=== PATIENT | male | born 1950 | race Caucasian/White ===

== ENCOUNTER 2019-01-31 15:00 | Emergency (ER) | payer MEDICARE, BC ==
--- NOTE | 2019-01-31 15:34 | EDM.PDOC ---
ED HPI GENERAL MEDICAL PROBLEM - General Chief Complaint: Lower Extremity Injury/Pain Stated Complaint: LT ANKLE INJURY Time Seen by Provider: 01/31/19 15:19 Source of Information: Reports: Patient, RN Notes Reviewed History Limitations: Reports: No Limitations - History of Present Illness INITIAL COMMENTS - FREE TEXT/NARRATIVE: Patient is a 68-year-old male who presents to the ED for evaluation of a left ankle injury. The patient notes that around 7 AM this morning, he was outside, and was using the snowblower when he slipped on the ice and ended up injuring his left ankle. He did have some pain and swelling to his left ankle right away , he was able to walk on the extremity after the injury. He has been using ice on and off in 30-minute intervals, however this is not providing too much pain relief. Patient also did not take any ibuprofen or Tylenol for pain management at home. The patient denies pain anywhere else, into the hip or into the knee, he denies any loss of consciousness or hitting his head at this time. He notes that with movement and weightbearing, the pain is a 9 out of 10, when he sits still, it is at a 3 out of 10. Patient denies any numbness or tingling distal to the injury. Left Ankle Pain Score (Numeric/FACES): 5 - Related Data Allergies Allergy/AdvReac Type Severity Reaction Status Date / Time No Known Allergies Allergy Verified 01/31/19 15:18 Home Meds: Home Meds Phenytoin Sodium Extended [Dilantin] 300 mg PO BEDTIME 01/31/19 [History] atorvaSTATin [Lipitor] 10 mg PO DAILY 01/31/19 [History] Past Medical History HEENT History: Reports: Cataract Cardiovascular History: Reports: High Cholesterol Neurological History: Reports: Seizure - Past Surgical History Musculoskeletal Surgical History: Reports: Hip Replacement Social & Family History - Family History Family Medical History: Noncontributory - Tobacco Use Smoking Status *Q: Unknown Ever Smoked Review of Systems - Review of Systems Review Of Systems: Comprehensive ROS is negative, except as noted in HPI. Musculoskeletal: Reports: Joint Pain (L ankle), Joint Swelling (L ankle). 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 Denies: Numbness, Tingling ED EXAM, GENERAL - Physical Exam Exam: See Below Exam Limited By: No Limitations General Appearance: Alert, WD/WN, No Apparent Distress Eye Exam: Bilateral Eye: EOMI, Normal Inspection, PERRL Head: Atraumatic, Normocephalic Neck: Normal Inspection, Supple, Non-Tender, Full Range of Motion Respiratory/Chest: No Respiratory Distress, Lungs Clear, Normal Breath Sounds, No Accessory Muscle Use, Chest Non-Tender Cardiovascular: Normal Peripheral Pulses, Regular Rate, Rhythm, No Edema, No Murmur Peripheral Pulses: 3+: Dorsalis Pedis (L), Dorsalis Pedis (R) Extremities: Joint Swelling (L ankle), Limited Range of Motion (of L ankle d/t pain) Neurological: Alert, Oriented, Normal Cognition, No Motor/Sensory Deficits Psychiatric: Normal Affect, Normal Mood Skin Exam: Warm, Dry, Intact, Normal Color, No Rash. No: Ecchymosis Course - Vital Signs Last Recorded V/S: Last Vital Signs Temp 98.9 F 01/31/19 15:16 Pulse 72 01/31/19 15:16 Resp 18 01/31/19 15:16 BP 125/87 01/31/19 15:16 Pulse Ox 97 01/31/19 15:16 - Orders/Labs/Meds Orders: Active Orders 24 hr Category Date Time Status Ankle Min 3V Lt [CR] Stat Exams 01/31/19 15:20 Ordered - Re-Assessments/Exams Free Text/Narrative Re-Assessment/Exam: 01/31/19 15:33 Patient presents to the ED for the evaluation of a left ankle injury. I did order ankle x-rays for evaluation, the patient denied any sort of pain medication at today's ED visit. He states he will just take some ibuprofen when he gets home. 01/31/19 15:46 X-ray is done, and demonstrates a distal fibular fracture, that is nondisplaced. These reviewed by myself and Dr. Orr. Orthopedics at [facility] were consulted and they state that he can be non-weightbearing and send him home in a walking boot. The patient already presented to the ER with crutches, will have him be nonweightbearing until he can be evaluated by orthopedics. Departure - Departure Time of Disposition: 15:48 Disposition: Home, Self-Care 01 Condition: Fair Clinical Impression: Fracture of fibula Closed fracture of left distal fibula Qualifiers: Encounter type: initial encounter Fracture morphology: unspecified fracture morphology Qualified Code(s): S82.832A - Other fracture of upper and lower end of left fibula, initial encounter for closed fracture - Discharge Information *PRESCRIPTION DRUG MONITORING PROGRAM REVIEWED*: No *COPY OF PRESCRIPTION DRUG MONITORING REPORT IN PATIENT KEL: No Instructions: Tibial and Fibular Fractures Referrals: Ricardo Preciado MD [Primary Care Provider] - Forms: ED Department Discharge Additional Instructions: You have been evaluated in the ED for your Left ankle injury. Your x-ray demonstrated a nondisplaced distal fibular fracture. Please use ice as tolerated to the affected area. You were given a walking boot , for immobilization of the joint, even though this is a walking boot we recommend that you be nonweightbearing on the left lower extremity. You will need to use crutches for walking around, you will need to stay non- weightbearing until orthopedics states otherwise. You may take Tylenol 500 mg or ibuprofen 600mg q6 hrs for pain relief. Please do so until you have a tolerable level of pain with activity. Do not exceed 4000mg tylenol, Do not exceed 3200mg ibuprofen in a 24 hour time period. You were given a prescription for a strong pain medication, hydrocodone/ acetaminophen 5/325, please take 1 tab every 6 hours as needed for pain not relieved by Tylenol or ibuprofen alone. Please note this does contain Tylenol in it, so do not take more than 4000 mg in a 24-hour time span. These medications can be addictive, so please take as few as possible to achieve adequate pain control. These meds can also be quite constipating, recommend that you increase your oral fluid intake and take a stool softener like MiraLAX while taking these medications. Please call Ortho for follow-up and further evaluation Dr. Zimmerman is our orthopedic surgeon, his office number is [phone]. Please call and set up an appointment as soon as possible for further management. Please return to ED if your symptoms should change or worsen. - My Orders Last 24 Hours: My Active Orders 01/31/19 15:20 Ankle Min 3V Lt [CR] Stat - Assessment/Plan Last 24 Hours: My Active Orders 01/31/19 15:20 Ankle Min 3V Lt [CR] Stat
--- NOTE | 2019-02-03 09:39 | CR ---
Left ankle: Four views of left ankle were obtained. Comparison: No previous ankle study. Plantar spur is noted. Lateral malleolus fracture is seen. Fracture appears anatomic in alignment. Ankle mortise is symmetric. Diffuse soft tissue swelling is present. No additional fracture or other bony abnormality is appreciated. Impression: 1. Nondisplaced lateral malleolus fracture with soft tissue swelling. 2. Plantar spur. Diagnostic code #3 This report was dictated in Mountain Standard Time
== END 2019-01-31 16:14 | disposition home or self-care (01) ==
LOC: JD.ED 15:00
DX: S82.832A Other fracture of upper and lower end of left fibula, initial encounter for closed fracture (principal); E78.00 Pure hypercholesterolemia, unspecified; Z79.899 Other long term (current) drug therapy; W00.0XXA Fall on same level due to ice and snow, initial encounter
CPT/HCPCS: 73610-26-LT; 73610-LT; 99283; 99283-25

== ENCOUNTER 2021-01-29 06:21 | Day surgery (SDC) | payer MEDICARE, BC ==
[~2021-01-29 06:21] MED LIST: Acetaminophen 325 MG Tab PO SCH; Lactated Ringers 1,000 ML IV SCH; Lidocaine 1%/Sod Bicarbonate in NS 8.4% 1 ML Syringe IDERM PRN; Pregabalin 25 MG Cap PO SCH; Sodium Chloride 0.9% 10 ML Syringe FLUSH PRN; oxyCODONE ER 10 MG TAB.ER PO SCH
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
[2021-01-29] MEDS ORDERED: Propofol 200 MG/20 ML SDV ONE (07:18)
[2021-01-29] MEDS ORDERED: fentaNYL 100 MCG/2 ML SDV ONE (07:18)
[2021-01-29] MEDS ORDERED: ceFAZolin 1 GM Vial ONE (07:19)
[2021-01-29] MEDS ORDERED: Midazolam 1 MG/ML 2 ML SDV ONE (07:19)
[2021-01-29] MEDS ORDERED: EPINEPHrine 1 MG/ML SDV ONE (07:23)
[2021-01-29] MEDS ORDERED: Ropivacaine 0.5% 5 MG/ML 30 ML SDV ONE (07:23)
[2021-01-29] MEDS ORDERED: Lactated Ringers 1,000 ML ONE (08:59)
[2021-01-29] MEDS ORDERED: Ondansetron 4 MG/2 ML SDV IVPUSH PRN (10:46)
[2021-01-29] MEDS ORDERED: fentaNYL 100 MCG/2 ML SDV IVPUSH PRN (10:46)
[2021-01-29] MEDS ORDERED: HYDROmorphone 0.5 MG/0.5 ML Syringe IVPUSH PRN (10:46)
--- NOTE | 2021-01-29 10:47 | PCM.POSTAN ---
POST ANESTHESIA ASSESSMENT - MENTAL STATUS Mental Status: Alert, Oriented - VITAL SIGNS Vital Signs: Last Vital Signs Temp 98 F 01/29/21 10:34 Pulse 64 01/29/21 10:34 Resp 16 01/29/21 10:34 BP 101/64 01/29/21 10:34 Pulse Ox 100 01/29/21 10:34 - RESPIRATORY Respiratory Status: Respiratory Rate WNL, Airway Patent, O2 Saturation Stable - CARDIOVASCULAR CV Status: Pulse Rate WNL, Blood Pressure Stable - GASTROINTESTINAL GI Status: No Symptoms - PAIN Pain Score: 1 - POST OP HYDRATION Hydration Status: Adequate & Stable
--- NOTE | 2021-01-29 10:48 | PCM.PRNOTE ---
- Free Text/Narrative Note: Left selective femoral nerve block at the adductor canal for post-procedure pain control under US guidance requested by Dr. Zimmerman. Time Out: 1030 Start: 1038 End: 1041 Chart reviewed. Consent signed. Questions answered. Appropriate monitors applied. Time out performed. Left mid-shaft femur identified with ultrasound, scanning medially of femur, the femoral artery in the adductor canal visualized, and the femoral nerve located laterally to the artery. The skin was prepped lateral to the ultrasound probe with chlorahexadine times three. The 21ga 4 insulated block needle was inserted under direct ultrasound guidance into the adductor canal. 20mL of 0.5% ropivacaine with 1:200,000 epinephrine was injected circumferentially around the nerve with intermittent negative aspiration noted. Patient tolerated the procedure well. Sterile technique noted along with sterile gloves, mask, and sterile probe cover. See picture on progress note and vital signs on nurses notes. Block completed in PACU. Zaria Rebollar, DIESEL MOTOR MECHANIC
[2021-01-29] MEDS: Morphine 8 MG, EPINEPHrine 0.3 MG, Cefuroxime 750 MG, Ketorolac 30 MG, Sodium Chloride ... PRN ×10 (10:50→14:14)
[2021-01-29] MEDS: Vancomycin 1 GM SDV ONE ×2 (10:50→14:17)
--- NOTE | 2021-01-29 11:26 | CR ---
Left knee: AP and crosstable lateral views of the left knee were obtained. Comparison: Prior left knee CT study of 11/10/20. Left knee prosthesis is noted. Patellar prosthesis is seen. Components are aligned. Underlying bony structures show nothing else acute. Soft tissue air is seen. Impression: 1. Satisfactory postoperative radiographic appearance of recently placed left knee prostheses. Diagnostic code #2
[2021-01-29] MEDS ORDERED: Cyclobenzaprine 10 MG Tab PO ONE (11:45)
[2021-01-29] MEDS ORDERED: oxyCODONE 5 MG Tab PO ONE (11:46)
--- NOTE | 2021-02-11 16:34 | PCM.OPNOTE ---
- General Post-Op/Procedure Note Date of Surgery/Procedure: 01/29/21 Operative Procedure(s): left total knee arthroplasty with [employer] robot[employer] Pre Op Diagnosis: left knee osteoarthrosis Post-Op Diagnosis: Same Anesthesia Technique: Local, MAC, Spinal Primary Surgeon: Rogelio Zimmerman Anesthesia Provider: Zaria Rebollar Corrugator Machine Operator: Xuan Fitzpatrick Corrugator Machine Operator: Ale Garcia EBL in mLs: 200 Complications: None Condition: Good Free Text/Narrative:: 07/05 9mm 35x10
--- NOTE | 2021-02-12 16:56 | OR ---
DATE OF OPERATION: 01/29/2021 SURGEON: Rogelio Zimmerman MD OPERATING PROCEDURE: Left total knee arthroplasty with [employer] robot[employer]. PREOPERATIVE DIAGNOSIS: Left knee osteoarthrosis. POSTOPERATIVE DIAGNOSIS: Left knee osteoarthrosis. ANESTHESIA: Local MAC with spinal. ANESTHESIA PROVIDER: Zaria Rebollar. ASSISTANTS: Xuan Fitzpatrick PA-C, and Ale Garcia LPN ESTIMATED BLOOD LOSS: 200 mL. COMPLICATIONS: None. CONDITION: Stable. IMPLANTS: 1. [place] size 5 pres-fit CR femur. 2. Tiarra size 5 press-fit tibial base plate. 3. Tiarra size 5, 9 mm CS polyethylene insert. 4. Tiarra size 35 x 10 mm press-fit patella. DESCRIPTION OF PROCEDURE: The patient was identified in the preop holding area. Proper site was marked and identified by the surgeon. The patient was taken back to the operating theater, where after adequate anesthesia, the patient's left lower extremity had a nonsterile tourniquet applied and then it was sterilely prepped and draped in the usual sterile fashion. OR time-out was performed. The patient received 2 g IV Ancef. Leg rios was then applied to the left lower extremity. At this time, the left lower extremity was exsanguinated. Tourniquet was insufflated to 250 mmHg. Standard anterior incision was made. Medial parapatellar arthrotomy was created. Deep fibers of the MCL were raised and anterior fat pad was resected. Attention was turned to the patella. Patella measured a 24, it was resected to a 14 for a 35 x 10 mm patella. Drill holes were then drilled. Attention was then turned to the femur. Two 4.0 Schanz pins were placed intra- incisionally on the femur for the Tiarra Renny robotic array and then 2 more were placed on the tibia 3 fingerbreadths below the tibial tubercle. The [place] [employer] robotic arrays were placed on both the femur and the tibia at this time as well as checkpoints on the femur and tibia. Hip center rotation was then obtained. The medial and lateral malleoli were marked as well as the checkpoints were marked for the Tiarra Renny robotic plan. The patient's knee was brought to full extension, varus and valgus stresses were applied, and then into 90 degrees of flexion. Tairra Renny robotic plan for this patient was then undertaken to match the flexion and extension gaps. A straight saw blade was then brought in. Tibial cut was completed as well as an anterior femoral cut, anterior chamfer cut, and posterior femoral cut. Saw blade was then switched out and the distal femoral cut as well as the posterior chamfer cut was completed. All bony fragments were removed. At this time, medial and lateral menisci were resected as well as any posterior osteophytes. Attention was turned to the tibia. The size 5 trial baseplate was placed on the tibia and a size 5 trial femur was placed on the femur. A 5, 9 mm trial poly was placed. The patient's knee was brought to full extension and flexion. Varus and valgus stresses were applied, was found to be stable with no instability. No signs of liftoff or loosening on the tibial baseplate. At this time, femoral drill holes were drilled, and the tibia was stamped and drilled in proper rotation. All trial implants were then removed. The size 5 tibial baseplate was impacted into place, size 5 femoral component was impacted into place, and then a 5, 9 mm CS polyethylene insert was impacted into place. A 35 x 10 mm press-fit patella was then press-fit into place. The tourniquet was deflated. Bleeders were cauterized. 1 L pulse lavage irrigation with Ancef was irrigated through the knee along with 400 mL Irrisept irrigation. Periarticular injection was completed. Topical tranexamic acid and vancomycin powder were applied. All checkpoints and pins were removed. At this point, a #2 barbed suture was used for closure of the medial parapatellar arthrotomy in flexion. 2-0 Vicryl and Stratafix were used for subcutaneous closure. Prineo was used for cutaneous closure. 3-0 nylons were used for closure of the pin holes on the tibia. The patient had a sterile soft dressing applied. The patient had an BRIJESH wrap applied and was sent to PACU in stable condition. The patient tolerated the procedure well. OPERATION PERFORMED: LO /[id number]
== END 2021-01-29 13:04 | disposition home or self-care (01) ==
LOC: JD.SDS 06:21
PROVIDERS: ATTEND Orthopaedic Surgery
DX: M17.12 Unilateral primary osteoarthritis, left knee (principal); F32.A Depression, unspecified; E78.00 Pure hypercholesterolemia, unspecified; Z91.048 Other nonmedicinal substance allergy status; Z79.899 Other long term (current) drug therapy; Z90.49 Acquired absence of other specified parts of digestive tract; Z98.890 Other specified postprocedural states; Z87.891 Personal history of nicotine dependence
CPT/HCPCS: 27447; 73560; 97110; 97116; 97161; A9270; C1713; C1776; J0171; J0690; J0697; J1170; J1885; J2250; J2270; J2704; J2795; J3010; J3370; J7120; 01402; 64450; 76942; 99100

== ENCOUNTER 2021-09-10 07:21 | Day surgery (SDC) | payer MEDICARE, BC ==
[~2021-09-10 07:21] MED LIST changes: +Morphine 8 MG, EPINEPHrine 0.3 MG, Cefuroxime 750 MG, Ketorolac 30 MG, Sodium Chloride ... PRN; +Sodium Chloride 0.9% 10 ML Syringe FLUSH SCH
[2021-09-10] MEDS ORDERED: Vancomycin 1 GM SDV ONE (08:05)
[2021-09-10] MEDS ORDERED: Propofol 200 MG/20 ML SDV ONE ×2 (08:06→08:07)
[2021-09-10] MEDS ORDERED: Midazolam 1 MG/ML 2 ML SDV ONE (08:07)
[2021-09-10] MEDS ORDERED: Lidocaine 1% 4 ML ONE (08:07)
[2021-09-10] MEDS ORDERED: fentaNYL 100 MCG/2 ML SDV ONE (08:07)
[2021-09-10] MEDS ORDERED: ceFAZolin 2 GM Vial ONE (08:07)
[2021-09-10] MEDS ORDERED: EPINEPHrine 1 MG/ML SDV ONE (08:13)
[2021-09-10] MEDS ORDERED: Ropivacaine 0.5% 5 MG/ML 30 ML SDV ONE (08:13)
[2021-09-10] MEDS ORDERED: Lactated Ringers 1,000 ML ONE (09:23)
[2021-09-10] MEDS ORDERED: Ondansetron 4 MG/2 ML SDV IVPUSH PRN (09:36)
[2021-09-10] MEDS ORDERED: fentaNYL 100 MCG/2 ML SDV IVPUSH PRN (09:36)
[2021-09-10] MEDS ORDERED: diphenhydrAMINE 50 MG/ML SDV IVPUSH PRN (09:36)
[2021-09-10] MEDS ORDERED: ePHEDrine 50 MG/ML SDV ONE (09:57)
[2021-09-10] MEDS ORDERED: Ketorolac 30 MG/ML SDV ONE (10:32)
[2021-09-10] MEDS ORDERED: Ondansetron 4 MG/2 ML SDV ONE (10:32)
[2021-09-10] MEDS ORDERED: Acetaminophen/HYDROcodone 325-5 MG Tab PO ONE ×2 (11:00→13:20)
== END 2021-09-10 14:00 | disposition home or self-care (01) ==
LOC: JD.SDS 07:21
PROVIDERS: ATTEND Orthopaedic Surgery
DX: M17.11 Unilateral primary osteoarthritis, right knee (principal); E78.00 Pure hypercholesterolemia, unspecified; G40.909 Epilepsy, unspecified, not intractable, without status epilepticus; K21.9 Gastro-esophageal reflux disease without esophagitis; Z79.899 Other long term (current) drug therapy; Z91.09 Other allergy status, other than to drugs and biological substances; Z98.890 Other specified postprocedural states; Z90.49 Acquired absence of other specified parts of digestive tract; Z87.891 Personal history of nicotine dependence
CPT/HCPCS: 0055T; 27447; 73560; 97110; 97116; 97161; A9270; C1713; C1776; J0171; J0690; J0697; J1885; J2250; J2270; J2405; J2704; J2795; J3010; J3370; J7120; 01402; 64447; 76942; 99100